=== PATIENT | male | born 1940 | race Caucasian/White ===

== ENCOUNTER 2021-10-19 11:09 | Emergency (ER) | payer MEDICARE ==
[~2021-10-19] VITALS: Ht 177.8 cm; Wt 90.7 kg
[2021-10-19] MEDS ORDERED: AMOCLA875 PO (12:25)
[2021-10-19] MEDS ORDERED: Prednisone50 MG PO (12:25)
== END 2021-10-19 12:36 | disposition home or self-care (01) ==
LOC: ER 11:09
DX: J20.9 Acute bronchitis, unspecified (principal); S51.812A Laceration without foreign body of left forearm, initial encounter; X58.XXXA Exposure to other specified factors, initial encounter
CPT/HCPCS: 71046; 94640; 94664; 99283-25; A9270; J7512